=== PATIENT | female | born 2000 | race Asian ===

== ENCOUNTER 2020-09-25 19:34 | Emergency (ER) | payer MEDICAID, SELFPAY ==
--- NOTE | 2020-09-25 19:35 | XR_ITS ---
WS: [id number] Exam: XR chest 2V* [id number] Date/Time of Exam: 09/25/2020 7:44 PM Reason For Exam: cp Comparison 02/23/2019. Findings: The lungs are clear and fully expanded. Costophrenic angles are sharp. No infiltrates. Bronchovascula r relief appears normal. Cardiac silhouette is unremarkable. Bony elements are intact. XR/XR chest 2V* [id number] IMPRESSION: Unremarkable chest radiograph.
[2020-09-25 19:59] VITALS: BP 126/83; PULSE 86; RESP 18; TEMP 36.7; O2SAT 98; BMI 26.6
--- NOTE | 2020-09-25 20:27 | ECG_ITS ---
[facility] Test Date: 2020-09-25 Pat Name: Francy Botello Department: Room: Gender: Female Business Systems Technician: : 2000 Requested By: Andree Jean Order Number: [id number] Mike MD: Deniz Valdivia M.D. Measurements Intervals [place] Rate: 73 P: 45 KS: 149 QRS: 3 QRSD: 98 T: 5 QT: 400 QTc: 443 Interpretive Statements SINUS RHYTHM NONSPECIFIC T-WAVE ABNORMALITY Compared to ECG 02/20/2019 17:19:48 Possible ischemia no longer present T-wave abnormality still present Electronically Signed On 09-26-2020 18:29:41 GUT PULLER by Deniz Valdivia M.D. [id number]
[2020-09-25 21:13] LABS: Basophils # 0.1 10^3/uL (0.0-0.1); Basophils % 0.5 %; Eosinophils # 0.2 10^3/uL (0.0-0.8); Eosinophils % 1.9 %; Hematocrit 42.2 % (37.0-47.0); Hemoglobin 12.7 g/dL (11.5-15.3); Lymphocytes # 2.5 10^3/uL (1.5-6.5); Lymphocytes % 24.9 %; Mean Corpuscular HGB Conc 30.1 g/dL (30.0-36.0); Mean Corpuscular Hemoglobin 25.5 pg (28.0-34.0); Mean Corpuscular Volume 84.7 fL (81-99); Mean Platelet Volume 9.6 fL (7.4-10.4); Monocytes # 0.4 10^3/uL (0.2-0.9); Monocytes % 3.8 %; Neutrophils # 6.84 10^3/uL (1.8-8.0); Neutrophils % 68.7 %; Nucleated Red Blood Cells % 0 %; Platelet Count 289 10^3/cmm (130-400); Red Blood Count 4.98 10^6/uL (4.1-5.3); Red Cell Distribution Width 15.7 % (12.1-15.1)
[2020-09-25 21:28] LABS: D Dimer 0.32 ug/mIFEU (0-0.59)
[2020-09-25 21:31] LABS: Alanine Aminotransferase 13 U/L (0-33); Albumin Level 4.7 g/dL (3.5-5.2); Alkaline Phosphatase 92 IU/L (35-105); Anion Gap 13.4 (5-19); Aspartate Amino Transferase 15 U/L (0-32); Blood Urea Nitrogen 12 mg/dL (6-20); Calcium 9.7 mg/dL (8.5-10.5); Carbon Dioxide 25 mmol/L (22-29); Chloride 106 mmol/L (98-107); Globulin 2.6 g/dL (1.3-4.6); Glomerular Filtration Rate 91.4 mL/min (90-130); Glucose 128 mg/dL (65-115); Osmolality Calculated 291 mOsm/kg (285-295); Potassium 4.4 mmol/L (3.5-5.1); Sodium 140 mmol/L (136-145); Total Bilirubin 0.3 mg/dL (0.15-1.2); Total Protein 7.3 g/dL (6.6-8.7)
[2020-09-25 21:35] LABS: Troponin(5th) Baseline 6 ng/L (0-10)
--- NOTE | 2020-09-25 21:57 | ED_ITS ---
HPI - Chest Pain General: Chief Complaint: Chest Pain Stated Complaint: cp Time Seen by Provider: 09/25/20 21:17 Source: patient Mode of arrival: ambulatory Limitations: no limitations History of Present Illness: HPI narrative: 20-year-old female states she been having some chest pain this morning. States is been constant and sharp into her left chest. She states it is worse with palpation. Denies any shortness of breath. She denies any radiation of her pain. Denies any vomiting or diarrhea. MD complaint: chest pain Associated symptoms: Deny abdominal pain, dyspnea, fever(s), nausea or vomiting Review of Systems Const: Denies: fever(s), chills, body aches or change in appetite Eyes: Denies: blurry vision or eye discomfort ENMT: Denies: throat pain or dental pain Card: Reports: chest pain Resp: Denies: dyspnea GI: Denies: abdominal pain, nausea, vomiting or diarrhea : Denies: dysuria Musc: Denies: neck pain or back pain Skin/Breast: Denies: rash Neuro: Denies: headache(s) Psych: Denies: depression Singh/Lymph: Denies: easy bruising All/Imm: Denies: urticaria [facility] Female Reproductive History: Date of last menstrual period: 09/18/20 Physical Exam Const: COMMON NORMALS: no acute distress, patient oriented x3 and healthy appearing HENMT: COMMON NORMALS: normocephalic and atraumatic HEAD & SCALP: normocephalic and atraumatic Eye: COMMON NORMALS: Equal, round and reactive pupils present and EOMs intact bilaterally PUPIL: Yes Equal, round and reactive pupils present Neck/C-Spine: COMMON NORMALS: full ROM and supple Chest: COMMONS NORMALS: normal inspection of the chest OTHER: Point tender over left chest Resp: COMMON NORMALS: normal respiratory effort, No retractions, No use of accessory muscles and clear to auscultation bilaterally AUSCULTATION: clear to auscultation bilaterally Cardio: COMMON NORMALS: regular rate, regular rhythm and No murmurs present (Cardio) RATE: regular rate RHYTHM: regular rhythm GI: COMMON NORMALS: Normal to inspection, nondistended, normoactive bowel sounds present, Soft to palpation, non-tender and no masses PALPATION: Yes Soft to palpation Extremity: COMMON NORMALS: normal to inspection and full ROM Neuro: COMMON NORMALS: patient oriented x3, moves all extremities and no focal motor deficits Psych: COMMON NORMALS: mental status grossly normal, Normal thought process present and cooperative THOUGHT PROCESS: Normal thought process present Skin: COMMON NORMALS: no rashes or lesions noted and no wounds GENERAL SKIN EXAM: no rashes or lesions noted Course Vital Signs: Vital signs: Vital Signs Temperature 98.1 F 09/25/20 19:59 Pulse Rate 86 09/25/20 19:59 Respiratory Rate 18 09/25/20 19:59 Blood Pressure 126/83 09/25/20 19:59 Pulse Oximetry 98 09/25/20 19:59 MDM - Chest Pain MDM Narrative: Medical decision making narrative: Francy presents with chest pains atypical in nature. Is likely muscular she is point tender. EKG x-ray along with troponin and D-dimer are all negative. She is stable for discharge and is to follow-up with PCP and return if worsening. Lab Data: Labs: Lab Results 09/25/20 09/25/20 09/25/20 Range/Units 20:58 20:58 20:58 WBC 10.0 (4.5-13.0) 10^3/ uL RBC 4.98 (4.1-5.3) 10^6/u L Hgb 12.7 (11.5-15.3) g/dL Hct 42.2 (37.0-47.0) % MCV 84.7 (81-99) fL MCH 25.5 L (28.0-34.0) pg MCHC 30.1 (30.0-36.0) g/dL RDW 15.7 H (12.1-15.1) % Plt Count 289 (130-400) 10^3/c mm MPV 9.6 (7.4-10.4) fL Neut % (Auto) 68.7 % Lymph % (Auto) 24.9 % Stanly % (Auto) 3.8 % Eos % (Auto) 1.9 % Baso % (Auto) 0.5 % Neut # (Auto) 6.84 (1.8-8.0) 10^3/u L Lymph # (Auto) 2.5 (1.5-6.5) 10^3/u L Stanly # (Auto) 0.4 (0.2-0.9) 10^3/u L Eos # (Auto) 0.2 (0.0-0.8) 10^3/u L Baso # (Auto) 0.1 (0.0-0.1) 10^3/u L Nucleated RBC % (a uto) 0 % Nucleated RBCs # 0.0 /100WBC D-Dimer 0.32 (0-0.59) ug/mIFE U Sodium 140 (136-145) mmol/L Potassium 4.4 (3.5-5.1) mmol/L Chloride 106 (98-107) mmol/L Carbon Dioxide 25 (22-29) mmol/L Anion Gap 13.4 (5-19) BUN 12 (6-20) mg/dL Creatinine 0.8 (0.5-0.9) mg/dL GFR Calculation 91.4 (90-130) mL/min Glucose 128 H (65-115) mg/dL Calculated Osmolal ity 291 (285-295) mOsm/k g Calcium 9.7 (8.5-10.5) mg/dL Total Bilirubin 0.3 (0.15-1.2) mg/dL AST 15 (0-32) U/L ALT 13 (0-33) U/L Alkaline Phosphata se 92 (35-105) IU/L Troponin T Baselin e (0-10) ng/L Troponin T 120 Min [place] Troponin T Total Protein 7.3 (6.6-8.7) g/dL Albumin 4.7 (3.5-5.2) g/dL Globulin 2.6 (1.3-4.6) g/dL 09/25/20 09/25/20 Range/Units 20:58 Unknown WBC (4.5-13.0) 10^3/ uL RBC (4.1-5.3) 10^6/u L Hgb (11.5-15.3) g/dL Hct (37.0-47.0) % MCV (81-99) fL MCH (28.0-34.0) pg MCHC (30.0-36.0) g/dL RDW (12.1-15.1) % Plt Count (130-400) 10^3/c mm MPV (7.4-10.4) fL Neut % (Auto) % Lymph % (Auto) % Stanly % (Auto) % Eos % (Auto) % Baso % (Auto) % Neut # (Auto) (1.8-8.0) 10^3/u L Lymph # (Auto) (1.5-6.5) 10^3/u L Stanly # (Auto) (0.2-0.9) 10^3/u L Eos # (Auto) (0.0-0.8) 10^3/u L Baso # (Auto) (0.0-0.1) 10^3/u L Nucleated RBC % (a uto) % Nucleated RBCs # /100WBC D-Dimer (0-0.59) ug/mIFE U Sodium (136-145) mmol/L Potassium (3.5-5.1) mmol/L Chloride (98-107) mmol/L Carbon Dioxide (22-29) mmol/L Anion Gap (5-19) BUN (6-20) mg/dL Creatinine (0.5-0.9) mg/dL GFR Calculation (90-130) mL/min Glucose (65-115) mg/dL Calculated Osmolal ity (285-295) mOsm/k g Calcium (8.5-10.5) mg/dL Total Bilirubin (0.15-1.2) mg/dL AST (0-32) U/L ALT (0-33) U/L Alkaline Phosphata se (35-105) IU/L Troponin T Baselin e 6 (0-10) ng/L Troponin T 120 Min [place] Cancelled Delta Troponin T Cancelled Total Protein (6.6-8.7) g/dL Albumin (3.5-5.2) g/dL Globulin (1.3-4.6) g/dL Imaging Data^: CXR: Attestation: I personally reviewed and interpreted this imaging study as follows: My impression: No acute abnormality EKG Data^: EKG 1: Attestation: I personally reviewed and interpreted this EKG as follows: EKG interpretation date: 09/25/20 EKG interpretation time: 20:11 Interpretation: nsr hr [address] or t wave abnormalities qrs 98 qtc 426 Discharge Plan Discharge Patient Disposition: Home Clinical Impression: Atypical chest pain Condition: Stable Prescriptions: New Naprosyn 500 mg tablet 500 mg PO BID PRN (Reason: pain) Qty: 20 RF: 0 Discharge Orders: Discharge ED (Routine); Ordered 09/25/20 Ordered By: Andree Jean Discharge Diet: Advance as tolerated Discharge Activity: Resume usual activity Patient Instructions: Chest Pain (ED) Coding Level of Care Code ED Radio Interference Supervisor for Carola Duarte
[2020-09-25] MEDS: HYDROcodone-acetaminophen 5-325 mg Tablet 1 TAB PO (22:03)
[2020-09-25 22:13] VITALS: PULSE 82; RESP 16; O2SAT 97
== END 2020-09-25 22:14 | disposition home or self-care (01) ==
PROVIDERS: Emergency Provider Emergency Medicine
DX: R07.89 Other chest pain (principal)
CPT/HCPCS: 12345; 71046; 80053; 84484; 85025; 85378; 93005; 99281; 99283

== ENCOUNTER 2020-10-22 15:25 | Emergency (ER) | payer OTHER, MEDICAID, SELFPAY ==
[2020-10-22 15:42] VITALS: BP 124/85; PULSE 83; RESP 18; TEMP 36.4; O2SAT 97; BMI 26.9
[2020-10-22 15:57] VITALS: PULSE 84; RESP 18; O2SAT 98
--- NOTE | 2020-10-22 16:22 | W.ED.FEMALGU ---
HPI - Female Genitourinary General: Chief complaint: Urogenital-Female Stated complaint: Urinary Retention Time Seen by Provider: 10/22/20 15:44 History of Present Illness: HPI Narrative: The patient is a 25-year-old female with past medical history mental health problems and she takes many medications which she does not know the names of. She comes to the ER complaining of inability to urinate over the past day. She has had some accidents including last night. She feels fullness in the lower belly suprapubic region and tenderness there. She says she has had this once before in 2017 and found out it was related to her medications. Denies frequent UTIs. Onset (ago): day(s) (1) Consistency: progressively worsening Associated symptoms: Deny abdominal pain or headache(s) Date of Last Menstrual Period: 09/18/20 Review of Systems General: Reports: 10 or more systems reviewed and unremarkable except in HPI and below Const: Denies: fatigue Eyes: Denies: change in vision, blurry vision or eye redness ENMT: Denies: throat pain, swelling of lips/tongue, ear or mastoid pain or nasal congestion Card: Denies: chest pain, palpitations, irregular heart rhythm, edema, dyspnea on exertion or orthopnea Resp: Denies: dyspnea, productive cough or non-productive cough GI: Denies: abdominal pain, diarrhea or GI cramping : Reports: difficulty voiding and urinary incontinence; Denies: flank pain, urinary frequency or urinary urgency Musc: Denies: neck pain, back pain, extremity pain, joint pain, joint redness, limited range of motion or muscle weakness Skin/Breast: Denies: rash, pruritus, erythema, skin pain or skin tenderness Neuro: Denies: headache(s), numbness in extremities, weakness in extremities, sensory changes, difficulty walking, dizziness, confusion or Slurred speech present Psych: Denies: anxiety or depression Endo: Denies: polyuria All/Imm: Denies: urticaria, throat swelling or tongue swelling [facility] ED Female Reproductive History: Date of last menstrual period: 09/18/20 Physical Exam Const: COMMON NORMALS: no acute distress, average body habitus, patient oriented x3, no limitations, healthy appearing, alert and well nourished GENERAL APPEARANCE: cooperative, comfortable, well kempt and well developed ORIENTATION/CONSCIOUSNESS: Yes awake, Yes oriented to person, Yes oriented to place and Yes oriented to time HENMT: COMMON NORMALS: normocephalic, external ears normal and Normal external nose present HEAD & SCALP: normal to inspection and normocephalic NOSE: Normal external nose present EXTERNAL EAR: Yes external ears normal MOUTH: Normal oral and palatal mucosa present THROAT: posterior oropharynx normal Eye: COMMON NORMALS: Equal, round and reactive pupils present and EOMs intact bilaterally GENERAL EYE: appearance normal, both eyes and all related structures PUPIL: Yes Equal, round and reactive pupils present Neck/C-Spine: COMMON NORMALS: full ROM, no lymphadenopathy, no meningeal signs and no JVD GENERAL: Yes normal visual inspection Lymph: LYMPHATIC: no lymphadenopathy noted Chest: COMMONS NORMALS: normal inspection of the chest and normal palpation of entire chest wall Resp: COMMON NORMALS: normal respiratory effort, No retractions, No use of accessory muscles, clear to auscultation bilaterally and percussion normal EFFORT & INSPECTION: Yes able to speak in complete sentences AUSCULTATION: clear to auscultation bilaterally PERCUSSION: percussion normal Cardio: COMMON NORMALS: no JVD, regular rate, regular rhythm, S1 normal heart sound present, S2 normal heart sound present and Peripheral pulses 2+ throughout RATE: regular rate RHYTHM: regular rhythm HEART SOUNDS: S1 normal heart sound present and S2 normal heart sound present PERIPHERAL PULSES: Peripheral pulses 2+ throughout GI: COMMON NORMALS: Normal to inspection, nondistended, normoactive bowel sounds present, Soft to palpation and no masses INSPECTION: Yes normal to inspection PALPATION: Yes Soft to palpation OTHER: Mild suprapubic distention and tenderness indicative of urinary retention : COMMON NORMALS: Yes no CVA tenderness BLADDER/KIDNEY EXAM: Yes no CVA tenderness Back/Pelvis: COMMON NORMALS: no CVA tenderness, thoracic and lumbar spine normal to inspection, no thoracic nor lumbar tenderness and thoraco-lumbar ROM normal Extremity: COMMON NORMALS: normal to inspection, full ROM, capillary refill normal, no joint enlargement and no pedal edema GENERAL: Yes normal exam except as noted Neuro: COMMON NORMALS: patient oriented x3, CN's II-XII intact bilaterally, moves all extremities, no focal motor deficits, no sensory deficits noted and gait normal SENSORIUM/ORIENTATION: Yes alert, Yes oriented to person, Yes oriented to place and Yes oriented to time MENINGEAL SIGNS: Yes no meningeal signs Psych: COMMON NORMALS: mental status grossly normal, Normal thought process present, cooperative, normal affect and speech normal APPEARANCE: Yes well kempt ATTITUDE: Yes calm SPEECH: Yes normal speech THOUGHT PROCESS: Normal thought process present Skin: COMMON NORMALS: no rashes or lesions noted GENERAL SKIN EXAM: no rashes or lesions noted Course Vital Signs: Vital signs: Vital Signs Temperature 97.5 F L 10/22/20 15:42 Pulse Rate 63 10/22/20 18:00 Respiratory Rate 18 10/22/20 18:00 Blood Pressure 127/64 10/22/20 18:00 Pulse Oximetry 98 10/22/20 18:00 MDM - Female MDM Narrative: Medical decision making narrative: Patient takes many psych medications which she cannot name though she has had an episode of urinary retention before requiring a Thornton. Thornton was placed and her symptoms resolved. She is stable for discharge. See her primary care physician in a few days to discuss medications and possibly have it removed at that time. ER with worsening symptoms. Urinalysis is clean. Lab Data: Labs: Lab Results 10/22/20 10/22/20 10/22/20 Range/Units 16:21 16:21 16:21 WBC 12.0 (4.5-13.0) 10^3/ uL RBC 4.76 (4.1-5.3) 10^6/u L Hgb 12.8 (11.5-15.3) g/dL Hct 40.2 (37.0-47.0) % MCV 84.5 (81-99) fL MCH 26.9 L (28.0-34.0) pg MCHC 31.8 (30.0-36.0) g/dL RDW 15.2 H (12.1-15.1) % Plt Count 283 (130-400) 10^3/c mm MPV 10.7 H (7.4-10.4) fL Neut % (Auto) 72.2 % Lymph % (Auto) 21.0 % Travis % (Auto) 3.9 % Eos % (Auto) 2.3 % Baso % (Auto) 0.3 % Neut # (Auto) 8.62 H (1.8-8.0) 10^3/u L Lymph # (Auto) 2.5 (1.5-6.5) 10^3/u L Travis # (Auto) 0.5 (0.2-0.9) 10^3/u L Eos # (Auto) 0.3 (0.0-0.8) 10^3/u L Baso # (Auto) 0.0 (0.0-0.1) 10^3/u L Nucleated RBC % (a uto) 0 % Nucleated RBCs # 0.0 /100WBC Sodium 139 (136-145) mmol/L Potassium 4.0 (3.5-5.1) mmol/L Chloride 105 (98-107) mmol/L Carbon Dioxide 23 (22-29) mmol/L Anion Gap 15.0 (5-19) BUN 8 (6-20) mg/dL Creatinine 0.5 (0.5-0.9) mg/dL GFR Calculation 157.3 H (90-130) mL/min Glucose 117 H (65-115) mg/dL Calculated Osmolal ity 287 (285-295) mOsm/k g Calcium 10.0 (8.5-10.5) mg/dL Total Bilirubin 0.2 (0.15-1.2) mg/dL AST 5 (0-32) U/L ALT < 5 (0-33) U/L Alkaline Phosphata se 82 (35-105) IU/L Total Protein 7.2 (6.6-8.7) g/dL Albumin 4.4 (3.5-5.2) g/dL Globulin 2.8 (1.3-4.6) g/dL Lipase 26 (13-60) U/L HCG, Qual Negative (Negative) Urine Color (Yellow) Urine Appearance (CLEAR) Urine pH (5-7) Ur Specific Gravit y (1.005-1.030) Urine Protein (Negative) Urine Glucose (UA) (Normal) Urine Ketones (Negative) Urine Blood (Negative) Urine Nitrate (Negative) Urine Bilirubin (Negative) Prot Sulfosalicyli c Acd (Negative) Urine Urobilinogen (Negative) mg/dL Ur Leukocyte Sharon ase (Negative) Urine RBC (0-2) /hpf Urine WBC (0-5) /hpf Ur Squamous Epith Cells (0-5) /hpf Amorphous Sediment /hpf Urine Bacteria (NONE) /hpf Urine Mucus /hpf 01/27/21 Range/Units 16:40 WBC (4.5-13.0) 10^3/ uL RBC (4.1-5.3) 10^6/u L Hgb (11.5-15.3) g/dL Hct (37.0-47.0) % MCV (81-99) fL MCH (28.0-34.0) pg MCHC (30.0-36.0) g/dL RDW (12.1-15.1) % Plt Count (130-400) 10^3/c mm MPV (7.4-10.4) fL Neut % (Auto) % Lymph % (Auto) % Travis % (Auto) % Eos % (Auto) % Baso % (Auto) % Neut # (Auto) (1.8-8.0) 10^3/u L Lymph # (Auto) (1.5-6.5) 10^3/u L Travis # (Auto) (0.2-0.9) 10^3/u L Eos # (Auto) (0.0-0.8) 10^3/u L Baso # (Auto) (0.0-0.1) 10^3/u L Nucleated RBC % (a uto) % Nucleated RBCs # /100WBC Sodium (136-145) mmol/L Potassium (3.5-5.1) mmol/L Chloride (98-107) mmol/L Carbon Dioxide (22-29) mmol/L Anion Gap (5-19) BUN (6-20) mg/dL Creatinine (0.5-0.9) mg/dL GFR Calculation (90-130) mL/min Glucose (65-115) mg/dL Calculated Osmolal ity (285-295) mOsm/k g Calcium (8.5-10.5) mg/dL Total Bilirubin (0.15-1.2) mg/dL AST (0-32) U/L ALT (0-33) U/L Alkaline Phosphata se (35-105) IU/L Total Protein (6.6-8.7) g/dL Albumin (3.5-5.2) g/dL Globulin (1.3-4.6) g/dL Lipase (13-60) U/L HCG, Qual (Negative) Urine Color Yellow (Yellow) Urine Appearance Hazy A (CLEAR) Urine pH 8 H (5-7) Ur Specific Gravit y 1.010 (1.005-1.030) Urine Protein Neg (Negative) Urine Glucose (UA) Norm (Normal) Urine Ketones Negative (Negative) Urine Blood Neg (Negative) Urine Nitrate Negative (Negative) Urine Bilirubin Neg (Negative) Prot Sulfosalicyli c Acd Negative (Negative) Urine Urobilinogen Norm (Negative) mg/dL Ur Leukocyte Sharon ase Negative (Negative) Urine RBC None (0-2) /hpf Urine WBC None (0-5) /hpf Ur Squamous Epith Cells 0-4 H (0-5) /hpf Amorphous Sediment 2+ /hpf Urine Bacteria Trace (NONE) /hpf Urine Mucus 1+ /hpf Discharge Plan Discharge Patient Disposition: Home Clinical Impression: Acute urinary retention Condition: Stable Prescriptions: No Action Naprosyn 500 mg tablet 500 mg PO BID PRN (Reason: pain) Qty: 20 RF: 0 Discharge Orders: Discharge ED (Routine); Ordered 10/22/20 Ordered By: Chucho Ascencio Discharge Diet: Advance as tolerated Discharge Activity: Resume usual activity Patient Instructions: Urinary Retention Activity Restrictions/Additional Instructions: You have had an episode of acute urinary retention possibly caused by your medications. Your urine is clean and has no urinary tract infection please continue to wear the Thornton catheter and see your primary care physician in a couple days to possibly have it removed and check your medications. Return to the ER with worsening symptoms. Coding Level of Care Code ED Assistant Clinical Director for Carola Fwnga Exam Comprehensive
[2020-10-22 16:53] LABS: Basophils % 0.3 %; Eosinophils # 0.3 10^3/uL (0.0-0.8); Eosinophils % 2.3 %; Hematocrit 40.2 % (37.0-47.0); Hemoglobin 12.8 g/dL (11.5-15.3); Lymphocytes # 2.5 10^3/uL (1.5-6.5); Mean Corpuscular HGB Conc 31.8 g/dL (30.0-36.0); Mean Corpuscular Hemoglobin 26.9 pg (28.0-34.0); Mean Corpuscular Volume 84.5 fL (81-99); Mean Platelet Volume 10.7 fL (7.4-10.4); Monocytes # 0.5 10^3/uL (0.2-0.9); Monocytes % 3.9 %; Neutrophils # 8.62 10^3/uL (1.8-8.0); Neutrophils % 72.2 %; Nucleated Red Blood Cells % 0 %; Platelet Count 283 10^3/cmm (130-400); Red Blood Count 4.76 10^6/uL (4.1-5.3); Red Cell Distribution Width 15.2 % (12.1-15.1)
[2020-10-22 17:10] LABS: Bilirubin Urine Neg (Negative); Blood Urine Neg (Negative); Glucose Urine UA Norm (Normal); Ketones Urine Negative (Negative); Leukocyte Esterase Urine Negative (Negative); Nitrate Urine Negative (Negative); Protein Urine Neg (Negative); Sulfosalicylic Acid Urine Negative (Negative); Urine Appearance Hazy (CLEAR); Urine Color Yellow (Yellow); Urobilinogen Urine Norm (Negative); pH Urine 8 (5-7)
[2020-10-22 17:11] LABS: Add Urine Microscopic? YES
[2020-10-22 17:13] LABS: Add Urine Culture? No; Amorphous Sediment Urine 2+ /hpf; Bacteria Urine TRACE /hpf; Mucus Urine 1+ /hpf; Squamous Epithelial Cell Urine 0-4 /hpf (0-5)
[2020-10-22 17:23] VITALS: BP 136/84; RESP 18; O2SAT 100
[2020-10-22 17:23] LABS: HCG Qualitative Urine. Negative (Negative)
[2020-10-22 17:55] LABS: Albumin Level 4.4 g/dL (3.5-5.2); Alkaline Phosphatase 82 IU/L (35-105); Blood Urea Nitrogen 8 mg/dL (6-20); Carbon Dioxide 23 mmol/L (22-29); Chloride 105 mmol/L (98-107); Globulin 2.8 g/dL (1.3-4.6); Glomerular Filtration Rate 157.3 mL/min (90-130); Glucose 117 mg/dL (65-115); Lipase 26 U/L (13-60); Osmolality Calculated 287 mOsm/kg (285-295); Sodium 139 mmol/L (136-145); Total Bilirubin 0.2 mg/dL (0.15-1.2); Total Protein 7.2 g/dL (6.6-8.7)
[2020-10-22 18:00] VITALS: BP 127/64; PULSE 63; RESP 18; O2SAT 98
[2020-10-22 18:06] LABS: Alanine Aminotransferase < 5 U/L (0-33); Aspartate Amino Transferase 5 U/L (0-32)
[2020-10-22 18:24] VITALS: BP 127/64; PULSE 73; RESP 18; O2SAT 98
== END 2020-10-22 18:24 | disposition home or self-care (01) ==
PROVIDERS: Emergency Provider Family Medicine
DX: R33.9 Retention of urine, unspecified (principal)
CPT/HCPCS: 12345; 51702; 80053; 81001; 81025; 83690; 85025; 99282; 99283

== ENCOUNTER 2020-10-24 21:31 | Emergency (ER) | payer OTHER, MEDICAID, SELFPAY ==
[2020-10-24 21:37] VITALS: BP 113/80; PULSE 86; RESP 16; TEMP 36.9; O2SAT 96; BMI 28.1
[2020-10-24 23:04] LABS: Add Urine Microscopic? NO
--- NOTE | 2020-10-24 23:04 | ED_ITS ---
HPI - Female Genitourinary General: Chief complaint: Urogenital-Female Stated complaint: URINARY RETENTION Time Seen by Provider: 10/24/20 21:46 History of Present Illness: HPI Narrative: 28-year-old female on multiple psychiatric medications. She presents with acute urinary retention. She had presented yesterday with similar complaints, and a Thornton catheter was placed. It was removed at her primary care office today without any change in her medications. She has not urinated since noon which is going on 10 to 11 hours at this point. She is feeling discomfort in her pelvis. MD elicited complaint: pelvic pain and difficulty urinating Pertinent past history: other Onset (ago): hour(s) Location of symptoms: suprapubic Female Urogenital Radiation: Non-Radiating Quality of pain: dull Consistency: constant Vaginal discharge: none Vaginal bleeding: none Urinary symptoms: Difficulty Urinating Exacerbating factors: none Relieving factors: none Associated symptoms: Reports abdominal pain and nausea; Deny fevers/chills, headache(s) or vaginal discharge Treatment prior to arrival: none Patient : No Date of Last Menstrual Period: 09/18/20 Review of Systems Const: Denies: fever(s) ENMT: Denies: odynophagia Card: Denies: chest pain or palpitations Resp: Denies: dyspnea, productive cough, non-productive cough or wheezing GI: Reports: abdominal pain and nausea : Denies: vaginal discharge Musc: Reports: back pain Skin/Breast: Denies: rash or erythema Neuro: Denies: headache(s) or confusion Psych: Denies: anxiety [facility] ED Female Reproductive History: Date of last menstrual period: 09/18/20 Physical Exam Const: COMMON NORMALS: alert GENERAL APPEARANCE: cooperative and ill appearing ORIENTATION/CONSCIOUSNESS: Yes oriented to person and Yes oriented to place Chest: COMMONS NORMALS: normal inspection of the chest Resp: COMMON NORMALS: normal respiratory effort, No retractions and No use of accessory muscles Cardio: COMMON NORMALS: regular rate, regular rhythm and No murmurs present (Cardio) RATE: regular rate RHYTHM: regular rhythm GI: COMMON NORMALS: Soft to palpation PALPATION: Yes Soft to palpation, Yes Tenderness to palpation present (GI), Yes Guarding due to palpation present (GI) and Yes Bladder palpation abnormal (Distended) : BLADDER/KIDNEY EXAM: Yes Bladder palpation abnormal (Distended) Bladder abnormal details: tender Neuro: SENSORIUM/ORIENTATION: Yes alert, Yes oriented to person and Yes oriented to place Course Vital Signs: Vital signs: Vital Signs Temperature 98.5 F 10/24/20 21:37 Pulse Rate 86 10/24/20 21:37 Respiratory Rate 16 10/24/20 21:37 Blood Pressure 113/80 10/24/20 21:37 Pulse Oximetry 96 10/24/20 21:37 MDM - Female MDM Narrative: Medical decision making narrative: Bladder scan performed and over 600 mL detected in the bladder. Thornton placed, with 1 L of urine out nearly immediately. The patient feels much better. I reviewed medications from her medication list. The patient is on sertraline, mirtazapine, and loratadine, all of which have anticholinergic properties. She will stop her mirtazapine and loratadine which will hopefully alleviate her symptoms. She had this problem once before several years ago, and medications were determined to be the cause at that time as well. We advised her to let medications leave her system for 4 days or so before attempting to remove catheter again. They will call her psychiatrist on Tuesday to ask for advice further about psychiatric medications. Discharge Plan Discharge Patient Disposition: Home Clinical Impression: Acute urinary retention Condition: Stable Prescriptions: No Action Naprosyn 500 mg tablet 500 mg PO BID PRN (Reason: pain) Qty: 20 RF: 0 Discharge Orders: Discharge ED (Routine); Ordered 10/24/20 Ordered By: Garrick Velasquez Referrals: Penny Morfin MD [Primary Care Provider] - 4-7 days Discharge Diet: Usual diet Discharge Activity: Increase activity as tolerated Patient Instructions: Thornton Catheter Placement and Care (ED), Acute Urinary Retention in Women (ED) Activity Restrictions/Additional Instructions: Discontinue mirtazapine and loratadine. Call your psychiatrist on Tuesday to let them know why. These could be causing the urinary retention. Keep the Thornton catheter in 3 to 4 days to allow medicine to fully be cleared. Then may attempt catheter removal. Return for mental status changes, worsening pain, blood in the urine, any other concerning symptoms. Coding Level of Care Code ED Enrollment Advisor for Carola Duarte
[2020-10-24 23:08] LABS: Bilirubin Urine Neg (Negative); Blood Urine Neg (Negative); Glucose Urine UA Norm (Normal); HCG Qualitative Urine. Negative (Negative); Ketones Urine Negative (Negative); Leukocyte Esterase Urine Negative (Negative); Nitrate Urine Negative (Negative); Protein Urine Neg (Negative); Urine Appearance Clear (CLEAR); Urine Color Yellow (Yellow); Urobilinogen Urine Norm (Negative); pH Urine 7 (5-7)
[2020-10-25 01:07] VITALS: BP 112/84; PULSE 74; RESP 18; O2SAT 96
== END 2020-10-25 01:00 | disposition home or self-care (01) ==
PROVIDERS: Emergency Provider Emergency Medicine; PCP Family Medicine
DX: R33.9 Retention of urine, unspecified (principal)
CPT/HCPCS: 12345; 51702; 51798; 81003; 81025; 99281; 99282

== ENCOUNTER 2020-12-14 14:28 | Emergency (ER) | payer OTHER, MEDICAID, SELFPAY ==
[2020-12-14 14:30] VITALS: BP 125/78; PULSE 87; RESP 18; TEMP 36.1; O2SAT 98; BMI 28.0
[2020-12-14 14:59] VITALS: BP 124/90; PULSE 74; RESP 14; O2SAT 97
--- NOTE | 2020-12-14 15:13 | CTR_ITS ---
PROCEDURE INFORMATION: Exam: CT Abdomen And Pelvis With Contrast Exam date and time: 12/14/2020 4:02 PM Age: 20 years old Clinical indication: Abdominal pain; Localized; Left; Patient HX: C/O L sided abd pain w constipation and n/v; Additional info: Abdominal pain, vomiting, constipation TECHNIQUE: Imaging protocol: Computed tomography of the abdomen and pelvis with contrast. Radiation optimization: All CT scans at this facility use at least one of these dose optimization techniques: automated exposure control; mA and/or kV adjustment per patient size (includes targeted exams where dose is matched to clinical indication); or iterative reconstruction. Contrast material: OMNI 300; Contrast volume: 95 ml; Contrast route: INTRAVENOUS (IV); COMPARISON: CT Chest/Abdomen/Pelvis w IV* 02/20/2019 12:32 PM RADIATION DOSE METRICS: Total DLP (mGy-cm): 1611.4 FINDINGS: Liver: Normal. No mass. Gallbladder and bile ducts: Normal. No calcified stones. No ductal dilation. Pancreas: Normal. No ductal dilation. Spleen: Normal. No splenomegaly. Adrenal glands: Normal. No mass. Kidneys and ureters: Normal. No hydronephrosis. Stomach and bowel: Unremarkable. No obstruction. No mucosal thickening. Appendix: No evidence of appendicitis. Intraperitoneal space: Unremarkable. No free air. No significant fluid collection. Vasculature: Unremarkable. No abdominal aortic aneurysm. Lymph nodes: Unremarkable. No enlarged lymph nodes. Urinary bladder: Unremarkable as visualized. Reproductive: Unremarkable as visualized. Bones/joints: Unremarkable. No acute fracture. Soft tissues: Unremarkable. CT/CT abdomen pelvis w con* [id number] IMPRESSION: 1. No acute findings. 2. No significant change from comparison imaging on 02/20/2019. Radiation Dose CTDIVOL = (mGy): DLP = 1611.4 (mGy-cm)
--- NOTE | 2020-12-14 15:19 | ED_ITS ---
HPI - Abdominal Pain General: Chief Complaint: Abdominal Pain Stated Complaint: NO BM, LAXATIVES NOT WORKING, VOMITING Time Seen by Provider: 12/14/20 14:51 Source: patient and other (caregiver) Mode of arrival: ambulatory Limitations: no limitations History of Present Illness: HPI narrative: Patient is a 20-year-old female who presents to ED today along with her caregiver for complaints of abdominal pain and constipation. Caregiver tells me patient has not had a bowel movement in the last 6 days. They have tried MiraLAX without success. Patient has had a few episodes of vomiting starting this morning. She is not having any urinary symptoms. No fevers. MD elicited complaint: abdominal pain Onset (ago): day(s) Pain Consistency: constant Location: Diffuse Quality: cramping and sharp Radiation: none Migration to: no migration Exacerbating factors: nothing Relieving factors: nothing Associated Symptoms: Reports constipation, nausea and vomiting; Denies chills, diarrhea, dysuria, fever(s), heartburn, hematochezia and melena Treatments prior to arrival: other (miralax) Related Data: Date of Last Menstrual Period: 09/18/20 Review of Systems Const: Denies: fever(s), chills, body aches, fatigue or malaise Card: Denies: chest pain Resp: Denies: dyspnea GI: Reports: abdominal pain, nausea, vomiting and constipation; Denies: heartburn, diarrhea, hematochezia, melena or white/light colored stool : Denies: flank pain, difficulty voiding, dysuria, urinary frequency, urinary urgency or urinary hesitancy Musc: Denies: neck pain, back pain, extremity pain, extremity swelling, joint pain or joint swelling Skin/Breast: Denies: rash Neuro: Denies: headache(s), numbness in extremities, weakness in extremities or sensory changes [facility] ED Female Reproductive History: Date of last menstrual period: 09/18/20 Physical Exam Const: COMMON NORMALS: no acute distress, average body habitus, patient oriented x3, no limitations, healthy appearing, alert and well nourished GENERAL APPEARANCE: cooperative ORIENTATION/CONSCIOUSNESS: Yes awake, Yes oriented to person, Yes oriented to place and Yes oriented to time HENMT: COMMON NORMALS: normocephalic and atraumatic HEAD & SCALP: normocephalic and atraumatic Resp: COMMON NORMALS: normal respiratory effort and clear to auscultation bilaterally AUSCULTATION: clear to auscultation bilaterally Cardio: COMMON NORMALS: regular rate and regular rhythm RATE: regular rate RHYTHM: regular rhythm GI: COMMON NORMALS: Normal to inspection, nondistended, normoactive bowel sounds present, Soft to palpation, No hepatosplenomegaly present and no masses PALPATION: Yes Soft to palpation, Yes Tenderness to palpation present (GI) (throughout L side of abdomen and across lower abdomen ) and Yes No hepatosplenomegaly present : COMMON NORMALS: Yes no CVA tenderness BLADDER/KIDNEY EXAM: Yes no CVA tenderness Back/Pelvis: COMMON NORMALS: no CVA tenderness Extremity: COMMON NORMALS: no calf tenderness and no pedal edema Neuro: COMMON NORMALS: patient oriented x3 SENSORIUM/ORIENTATION: Yes alert, Yes oriented to person, Yes oriented to place and Yes oriented to time Skin: COMMON NORMALS: no rashes or lesions noted GENERAL SKIN EXAM: no rashes or lesions noted Course Vital Signs: Vital signs: Vital Signs Temperature 97.0 F L 12/14/20 14:30 Pulse Rate 74 12/14/20 14:59 Respiratory Rate 14 12/14/20 14:59 Blood Pressure 124/90 12/14/20 14:59 Pulse Oximetry 97 12/14/20 14:59 MDM - Abdominal Pain MDM Narrative: Medical decision making narrative: Patient clinically appears in no acute distress. Her vital signs are stable. Lab work is non-concerning. CT scan is negative for any acute findings. Patient will be given a mixture of mineral oil, milk of magnesia, lactulose to take when she gets home. Recommend continuing MiraLAX daily as well. Recommend follow-up with your primary care provider. Lab Data: Labs: Lab Results 12/14/20 12/14/20 12/14/20 Range/Units 15:10 15:10 15:40 WBC 12.5 (4.5-13.0) 10^3/ uL RBC 5.01 (4.1-5.3) 10^6/u L Hgb 13.4 (11.5-15.3) g/dL Hct 42.8 (37.0-47.0) % MCV 85.4 (81-99) fL MCH 26.7 L (28.0-34.0) pg MCHC 31.3 (30.0-36.0) g/dL RDW 14.0 (12.1-15.1) % Plt Count 275 (130-400) 10^3/c mm MPV 10.2 (7.4-10.4) fL Neut % (Auto) 76.5 % Lymph % (Auto) 17.8 % [place] % (Auto) 3.7 % Eos % (Auto) 1.2 % Baso % (Auto) 0.4 % Neut # (Auto) 9.53 H (1.8-8.0) 10^3/u L Lymph # (Auto) 2.2 (1.5-6.5) 10^3/u L [place] # (Auto) 0.5 (0.2-0.9) 10^3/u L Eos # (Auto) 0.2 (0.0-0.8) 10^3/u L Baso # (Auto) 0.1 (0.0-0.1) 10^3/u L Nucleated RBC % (a uto) 0 % Nucleated RBCs # 0.0 /100WBC Sodium 139 (136-145) mmol/L Potassium 3.7 (3.5-5.1) mmol/L Chloride 104 (98-107) mmol/L Carbon Dioxide 23 (22-29) mmol/L Anion Gap 15.7 (5-19) BUN 9 (6-20) mg/dL Creatinine 0.7 (0.5-0.9) mg/dL GFR Calculation 106.7 (90-130) mL/min Glucose 137 H (65-115) mg/dL Calculated Osmolal ity 289 (285-295) mOsm/k g Lactate (0.5-2.2) mmol/L Calcium 9.5 (8.5-10.5) mg/dL Total Bilirubin 0.3 (0.15-1.2) mg/dL AST 15 (0-32) U/L ALT 14 (0-33) U/L Alkaline Phosphata se 89 (35-105) IU/L Total Protein 7.7 (6.6-8.7) g/dL Albumin 4.5 (3.5-5.2) g/dL Globulin 3.2 (1.3-4.6) g/dL Lipase 22 (13-60) U/L HCG, Qual Negative (Negative) Urine Color (Yellow) Urine Appearance (CLEAR) Urine pH (5-7) Ur Specific Gravit y (1.005-1.030) Urine Protein (Negative) Urine Glucose (UA) (Normal) Urine Ketones (Negative) Urine Blood (Negative) Urine Nitrate (Negative) Urine Bilirubin (Negative) Urine Urobilinogen (Negative) mg/dL Ur Leukocyte Sharon ase (Negative) Urine RBC (0-2) /hpf Urine WBC (0-5) /hpf Ur Squamous Epith Cells (0-5) /hpf Amorphous Sediment /hpf Urine Bacteria (NONE) /hpf 12/14/20 12/14/20 Range/Units 15:40 16:10 WBC (4.5-13.0) 10^3/ uL RBC (4.1-5.3) 10^6/u L Hgb (11.5-15.3) g/dL Hct (37.0-47.0) % MCV (81-99) fL MCH (28.0-34.0) pg MCHC (30.0-36.0) g/dL RDW (12.1-15.1) % Plt Count (130-400) 10^3/c mm MPV (7.4-10.4) fL Neut % (Auto) % Lymph % (Auto) % [place] % (Auto) % Eos % (Auto) % Baso % (Auto) % Neut # (Auto) (1.8-8.0) 10^3/u L Lymph # (Auto) (1.5-6.5) 10^3/u L [place] # (Auto) (0.2-0.9) 10^3/u L Eos # (Auto) (0.0-0.8) 10^3/u L Baso # (Auto) (0.0-0.1) 10^3/u L Nucleated RBC % (a uto) % Nucleated RBCs # /100WBC Sodium (136-145) mmol/L Potassium (3.5-5.1) mmol/L Chloride (98-107) mmol/L Carbon Dioxide (22-29) mmol/L Anion Gap (5-19) BUN (6-20) mg/dL Creatinine (0.5-0.9) mg/dL GFR Calculation (90-130) mL/min Glucose (65-115) mg/dL Calculated Osmolal ity (285-295) mOsm/k g Lactate 0.8 (0.5-2.2) mmol/L Calcium (8.5-10.5) mg/dL Total Bilirubin (0.15-1.2) mg/dL AST (0-32) U/L ALT (0-33) U/L Alkaline Phosphata se (35-105) IU/L Total Protein (6.6-8.7) g/dL Albumin (3.5-5.2) g/dL Globulin (1.3-4.6) g/dL Lipase (13-60) U/L HCG, Qual (Negative) Urine Color Dark yellow (Yellow) Urine Appearance Sl hazy (CLEAR) Urine pH 6.5 (5-7) Ur Specific Gravit y 1.020 (1.005-1.030) Urine Protein Neg (Negative) Urine Glucose (UA) Norm (Normal) Urine Ketones Negative (Negative) Urine Blood Neg (Negative) Urine Nitrate Negative (Negative) Urine Bilirubin Neg (Negative) Urine Urobilinogen 4 H (Negative) mg/dL Ur Leukocyte Sharon ase Negative (Negative) Urine RBC None (0-2) /hpf Urine WBC 0-4 H (0-5) /hpf Ur Squamous Epith Cells 0-4 H (0-5) /hpf Amorphous Sediment 1+ /hpf Urine Bacteria 1+ H (NONE) /hpf Imaging Data ^: CT Abd/Pel: Radiologist's impression: [place] [address] CT Scan Report Signed Patient: Cornie Botello #: [id number] : 2000Acct#:[id number] Age/Sex: 20 / FADM Date: 12/14/20 Loc: ERRoom/Bed: Attending Dr: Ordering Provider/Ordering MD: Chichi Alexis Date of Service: 12/14/20 Procedure(s): CT abdomen pelvis w con* [id number] Accession Number(s): [id number] Report Number: [id number] PROCEDURE INFORMATION: Exam: CT Abdomen And Pelvis With Contrast Exam date and time: 12/14/2020 4:02 PM Age: 20 years old Clinical indication: Abdominal pain; Localized; Left; Patient HX: C/O L sided abd pain w constipation and n/v; Additional info: Abdominal pain, vomiting, constipation TECHNIQUE: Imaging protocol: Computed tomography of the abdomen and pelvis with contrast. Radiation optimization: All CT scans at this facility use at least one of these dose optimization techniques: automated exposure control; mA and/or kV adjustment per patient size (includes targeted exams where dose is matched to clinical indication); or iterative reconstruction. Contrast material: OMNI 300; Contrast volume: 95 ml; Contrast route: INTRAVENOUS (IV); COMPARISON: CT Chest/Abdomen/Pelvis w IV* 02/20/2019 12:32 PM RADIATION DOSE METRICS: Total DLP (mGy-cm): 1611.4 FINDINGS: Liver: Normal. No mass. Gallbladder and bile ducts: Normal. No calcified stones. No ductal dilation. Pancreas: Normal. No ductal dilation. Spleen: Normal. No splenomegaly. Adrenal glands: Normal. No mass. Kidneys and ureters: Normal. No hydronephrosis. Stomach and bowel: Unremarkable. No obstruction. No mucosal thickening. Appendix: No evidence of appendicitis. Intraperitoneal space: Unremarkable. No free air. No significant fluid collection. Vasculature: Unremarkable. No abdominal aortic aneurysm. Lymph nodes: Unremarkable. No enlarged lymph nodes. Urinary bladder: Unremarkable as visualized. Reproductive: Unremarkable as visualized. Bones/joints: Unremarkable. No acute fracture. Soft tissues: Unremarkable. CT/CT abdomen pelvis w con* [id number] IMPRESSION: 1. No acute findings. 2. No significant change from comparison imaging on 02/20/2019. Radiation Dose CTDIVOL = (mGy): DLP = 1611.4 (mGy-cm) Dictated By:Neil Lopez Signed By:Nichole Lopez Date/Time:12/14/201651 DD/ 50 Discharge Plan Discharge Patient Disposition: Home Clinical Impression: Constipation Qualifiers: Constipation type: other constipation type Qualified Code(s): K59.09 - Other constipation Condition: Stable Prescriptions: No Action prazosin 1 mg capsule 1 mg PO BEDTIME@1999 RF: 0 sertraline 100 mg tablet 150 mg PO DAILY@0800 RF: 0 topiramate 25 mg tablet 25 mg PO BID@08,1999 RF: 0 lamotrigine 25 mg tablet 50 mg PO BEDTIME@1999 RF: 0 propranolol 10 mg tablet 20 mg PO BID@0800,1999 RF: 0 lithium carbonate 600 mg capsule 6,000 mg PO BID@0800,1999 RF: 0 fluticasone propionate 50 mcg/actuation spray,suspension 2 spray INTRANASAL DAILY@0800 RF: 0 Vitamin D3 25 mcg (1,000 unit) capsule 25 mcg PO DAILY@0800 RF: 0 Aristada 662 mg/2.4 mL suspension,extended rel syring 662 mg IM Q30D RF: 0 sumatriptan See Rx Instructions .ROUTE .COMPLEX RF: 0 acetaminophen 325 mg Tablet 325 mg PO QID PRN (Reason: PAIN/HEADACHE) RF: 0 Discharge Orders: Discharge ED (Routine); Ordered 12/14/20 Ordered By: Chichi Alexis Referrals: Penny Morfin MD [Primary Care Provider] - Patient Instructions: Constipation - Adult Activity Restrictions/Additional Instructions: As we discussed give patient a full dose of MiraLAX (1 capful) daily over the next 5 to 7 days. You may take the solution given to you today as soon as you get home. Return to the emergency department for worsening abdominal pain, continued episodes of vomiting, bloody vomit, fevers, or any other concerns you may have. Coding Level of Care Code ED Mash Processing Operator for [facility] Fwd Exam Comprehensive
[2020-12-14 15:24] LABS: Basophils # 0.1 10^3/uL (0.0-0.1); Basophils % 0.4 %; Eosinophils # 0.2 10^3/uL (0.0-0.8); Eosinophils % 1.2 %; Hematocrit 42.8 % (37.0-47.0); Hemoglobin 13.4 g/dL (11.5-15.3); Lymphocytes # 2.2 10^3/uL (1.5-6.5); Lymphocytes % 17.8 %; Mean Corpuscular HGB Conc 31.3 g/dL (30.0-36.0); Mean Corpuscular Hemoglobin 26.7 pg (28.0-34.0); Mean Corpuscular Volume 85.4 fL (81-99); Mean Platelet Volume 10.2 fL (7.4-10.4); Monocytes # 0.5 10^3/uL (0.2-0.9); Monocytes % 3.7 %; Neutrophils # 9.53 10^3/uL (1.8-8.0); Neutrophils % 76.5 %; Nucleated Red Blood Cells % 0 %; Platelet Count 275 10^3/cmm (130-400); Red Blood Count 5.01 10^6/uL (4.1-5.3); White Blood Count 12.5 10^3/uL (4.5-13.0)
[2020-12-14 15:40] LABS: Alanine Aminotransferase 14 U/L (0-33); Albumin Level 4.5 g/dL (3.5-5.2); Alkaline Phosphatase 89 IU/L (35-105); Anion Gap 15.7 (5-19); Aspartate Amino Transferase 15 U/L (0-32); Blood Urea Nitrogen 9 mg/dL (6-20); Calcium 9.5 mg/dL (8.5-10.5); Carbon Dioxide 23 mmol/L (22-29); Chloride 104 mmol/L (98-107); Globulin 3.2 g/dL (1.3-4.6); Glomerular Filtration Rate 106.7 mL/min (90-130); Glucose 137 mg/dL (65-115); Lipase 22 U/L (13-60); Osmolality Calculated 289 mOsm/kg (285-295); Potassium 3.7 mmol/L (3.5-5.1); Sodium 139 mmol/L (136-145); Total Bilirubin 0.3 mg/dL (0.15-1.2); Total Protein 7.7 g/dL (6.6-8.7)
[2020-12-14 16:07] LABS: HCG Qualitative Urine. Negative (Negative)
[2020-12-14 16:09] LABS: Add Urine Microscopic? YES; Bacteria Urine 1+ /hpf; Bilirubin Urine Neg (Negative); Blood Urine Neg (Negative); Glucose Urine UA Norm (Normal); Ketones Urine Negative (Negative); Leukocyte Esterase Urine Negative (Negative); Nitrate Urine Negative (Negative); Protein Urine Neg (Negative); Squamous Epithelial Cell Urine 0-4 /hpf (0-5); Urine Appearance SL Hazy (CLEAR); Urine Color Dark Yellow (Yellow); Urobilinogen Urine 4 mg/dL (Negative); WBC Urine 0-4 /hpf (0-5); pH Urine 6.5 (5-7)
[2020-12-14 16:10] LABS: Add Urine Culture? No; Amorphous Sediment Urine 1+ /hpf
[2020-12-14] MEDS: iohexol 300 mg/mL 100 mL Btl IV (16:27)
[2020-12-14 17:02] LABS: Lactate (Lactic Acid level) 0.8 mmol/L (0.5-2.2)
[2020-12-14] MEDS: mineral oil 30 mL UDC PO (17:11)
[2020-12-14] MEDS: magnesium hydroxide 30 mL UDC PO (17:11)
[2020-12-14] MEDS: lactulose oral liq 20 gm/30 mL UDC 30 GM PO (17:12)
== END 2020-12-14 17:20 | disposition home or self-care (01) ==
PROVIDERS: Family Medicine; Emergency Provider Physician Assistant; PCP Family Medicine
DX: K59.09 Other constipation (principal)
CPT/HCPCS: 74177; 80053; 81001; 81025; 83605; 83690; 85025; 99283; Q9967